=== PATIENT | female | born 1985 | race Caucasian/White ===

== ENCOUNTER 2016-11-06 15:54 | Emergency (ER) | payer OTHER ==
[~2016-11-06] VITALS: Ht 167.6 cm; Wt 151.1 kg
[2016-11-06 15:58] VITALS: BP 169/100; PULSE 95; TEMP 36.7; O2SAT 97; Ht 167.6 cm; Wt 151.1 kg
--- NOTE | 2016-11-06 16:28 | EMERGENCY ROOM VISIT NOTE ---
ED Visit Note First contact with patient: 16:01 CHIEF COMPLAINT: Left-sided back pain HISTORY OF PRESENT ILLNESS: This 30-year-old female patient presents to the emergency department ambulatory complaining of pain in the left upper back. The patient states that she has had intermittent low back pain for the past one month. She does report that her sister recently had a baby and she believes the pain is due to holding the baby. The pain improves with a heating pad. The patient states that today, she was in the shower and was reaching for something with her right hand when she felt a popping sensation in her left upper back and has had pain since then. She states the pain is worse with deep breath and movement. She rates her discomfort a 7/10 and describes as a stabbing pain. She has not taken any medication for the pain. She denies any chest pain or shortness of breath. She denies any radiation of the pain, numbness or weakness. REVIEW OF SYSTEMS: A review of systems was performed with positives and pertinent negatives listed in the history of present illness. All other systems were reviewed and are negative. ALLERGIES: No known drug allergies MEDICATIONS: No chronic medications PMH: No significant past medical history. SOCIAL HISTORY: The patient lives locally with family. PHYSICAL EXAM: VITALS: Vitals are noted on the nurse's note and reviewed by myself. Vital signs stable. GENERAL: This is a 30-year-old female, in no acute distress, nondiaphoretic, well-developed well-nourished. SKIN: The skin was without rashes, erythema, edema, or bruising. Capillary refill less than 2 seconds. NECK: Supple without nuchal rigidity. No cervical spine tenderness. No paraspinous muscle tenderness. HEART: Regular rate and rhythm without murmurs gallops or rubs. LUNGS: Clear to auscultation bilaterally without wheezes, rales or rhonchi. ABDOMEN: Positive bowel sounds x 4. Normal tympanic percussion. Soft, nontender, without masses or organomegaly. Bolivar sign negative. MUSCULOSKELETAL: No muscle atrophy, erythema, or edema noted of the back. There is tenderness and a small palpable spasm in the left thoracic paraspinous muscles. Full range of motion and strength 5/5 in bilateral upper extremities. NEURO: Patient was alert and oriented to person place and time. Normal sensation to light and sharp touch. Deep tendon reflexes 2+ in the upper extremities. Radial pulse 2+ bilaterally. EMERGENCY DEPARTMENT COURSE: The patient was evaluated as above. She has a history consistent with thoracic muscle spasm or intercostal strain. The patient notes that one of her coworkers told her she could possibly have a broken rib and I explained to her that this was very unlikely. Conservative measures including anti-inflammatories and heating pad were discussed with the patient. She was happy with this plan of care. She verbalized understanding of my assessment and treatment plan and was discharged home in good condition. DIAGNOSIS: Thoracic spasm Current/Historical Medications No Active Prescriptions or Reported Meds Vital Signs Date Time Temp Pulse Resp B/P Pulse Ox O2 Delivery O2 Flow Rate FiO2 11/06/16 15:58 36.7 95 18 169/100 97 Room Air Departure Information Impression Primary Impression: Spasm of thoracic back muscle Dispostion Home / Self-Care Condition GOOD Prescriptions No Active Prescriptions or Reported Meds Referrals Manpreet Oglesby D.O.Int.Med. (PCP) Patient Instructions My [facility] Additional Instructions For pain control, you can use the following [id number] medicines (if >12 yo): - Regular strength (325mg/tab) Tylenol (acetaminophen) 2 tabs every 4-6 hours as needed. Do not exceed 12 tablets in a 24 hour period. Avoid taking more than 4 grams (4000 mg) of Tylenol per day. This includes any other sources of acetaminophen you may take on a regular basis. - Regular strength (200 mg/tab) Advil (ibuprofen) 1-2 tabs every 4-6 hours as needed. Do not exceed a dose of 3200 mg per day. Apply heating pad to the area of pain frequently for the next few days. Follow-up with a primary care provider if symptoms persist or worsen. Return to the emergency department chest pain, difficulty breathing, or any other new/concerning symptoms.
== END 2016-11-06 16:35 | disposition home or self-care (01) ==
LOC: C.EDB 15:57 → C.EDD 16:35
DX: M62.830 Muscle spasm of back (principal); M54.6 Pain in thoracic spine

== ENCOUNTER → 2016-11-18 | Outpatient (CLI) | payer OTHER ==
[2016-11-18 10:14] LABS: THYROID STIMULATING HORMONE 2.17 uIu/ml (0.300-4.500)
[2016-11-18 10:20] LABS: PROLACTIN 7.49 ng/mL
[2016-11-18 10:28] LABS: CALCULATED INSULIN SENSITIVITY 0.285; GLUCOSE LOG 1.9868; INSULIN FASTING 33.3 mU/L (3-25); INSULIN LOG 1.5224
== END | disposition home or self-care (01) ==
LOC: C.LAB 07:00
PROVIDERS: ATTEND Obstetrics & Gynecology
DX: Z31.41 Encounter for fertility testing (principal); E28.2 Polycystic ovarian syndrome

== ENCOUNTER → 2017-08-04 | Outpatient (CLI) | payer OTHER ==
[2017-08-04 16:37] LABS: HEMATOCRIT 41.1 % (37-47); HEMOGLOBIN 13.7 g/dL (12.0-16.0); MEAN CELL VOLUME 84.6 fL (80-100); MEAN CORPUSCULAR HEMOGLOBIN 28.2 pg (25-34); MEAN CORPUSCULAR HGB CONC 33.3 g/dl (32-36); PLATELET COUNT 295 K/uL (130-400); RED CELL DISTRIBUTION WIDTH CV 14.4 % (11.5-14.5); RED CELL DISTRIBUTION WIDTH SD 43.8 fL (36.4-46.3); WHITE BLOOD COUNT 7.84 K/uL (4.8-10.8)
== END | disposition home or self-care (01) ==
LOC: C.LAB1850 16:02
PROVIDERS: ATTEND Physician Assistant
DX: N92.6 Irregular menstruation, unspecified (principal)

== ENCOUNTER → 2017-09-02 | Outpatient (CLI) | payer OTHER | END | disposition home or self-care (01) | LOC: C.PAPS 13:13 | PROVIDERS: ATTEND Physician Assistant | DX: Z12.4 Encounter for screening for malignant neoplasm of cervix (principal) ==